=== PATIENT | female | born 1960 | race Caucasian/White ===

== ENCOUNTER → 2017-02-26 | Day surgery (SDC) | payer OTHER ==
[2017-01-26 15:01] VITALS: Ht 167.6 cm; Wt 106.2 kg
--- NOTE | 2017-01-26 15:21 | PAT Medication Instructions ---
Service Date Jan 26, 2017. Current Home Medication List Meloxicam (Mobic), 7.5 MG PO QAM Menthol (Topical Analgesic) (Biofreeze), 1 DOSE TOP PRN Phenylephrine Hcl (Nasal Decongestant), 1 SPRAY INTNAS PRN Zolpidem Tartrate (Ambien), 10 MG PO HS Medication Instructions For Your Scheduled Surgery - Hold the following medications 1 week prior to surgery as directed by surgeon: Meloxicam (Mobic), 7.5 MG PO QAM - Hold the following medications 24 hours prior to surgery: Menthol (Topical Analgesic) (Biofreeze), 1 DOSE TOP PRN - Take the following medications the morning of surgery: Phenylephrine Hcl (Nasal Decongestant), 1 SPRAY INTNAS PRN - Take the following medications as scheduled the night before surgery: Zolpidem Tartrate (Ambien), 10 MG PO HS *nothing to eat or drink after midnight* If you have any questions please call us at [phone] or [phone] or [phone]
[2017-01-26 15:53] LABS: BASO % 0.2 %; BASO ABS # 0.02 K/uL (0-0.2); EOS % 1.2 %; HEMATOCRIT 41.4 % (37-47); HEMOGLOBIN 13.5 g/dL (12.0-16.0); IG# 0.02 K/uL (0.00-0.02); LYMPH % 35.7 %; LYMPH ABS # 2.87 K/uL (1.2-3.4); MEAN CELL VOLUME 92.8 fL (80-100); MEAN CORPUSCULAR HEMOGLOBIN 30.3 pg (25-34); MEAN CORPUSCULAR HGB CONC 32.6 g/dl (32-36); MEAN PLATELET VOLUME 10.4 fL (7.4-10.4); MONO % 5.8 %; MONO ABS # 0.47 K/uL (0.11-0.59); NEUT % 56.9 %; NEUT ABS # 4.57 K/uL (1.4-6.5); PLATELET COUNT 222 K/uL (130-400); RED CELL DISTRIBUTION WIDTH CV 13.5 % (11.5-14.5); RED CELL DISTRIBUTION WIDTH SD 45.8 fL (36.4-46.3); WHITE BLOOD COUNT 8.05 K/uL (4.8-10.8)
[2017-01-26 16:13] LABS: CALCIUM 9.6 mg/dl (8.5-10.1); CREATININE 0.78 mg/dl (0.60-1.20); POTASSIUM 4.2 mmol/L (3.5-5.1)
[~2017-02-26] VITALS: Ht 167.6 cm; Wt 106.2 kg
[~2017-02-26] MED LIST: ATROPINE SULFATE 0.1 MG/ML 5ML SYR IV PRN; BUPIVACAINE/EPINEPHRINE 0.25% 1:200,000 30 ML VIAL ONE; CEFAZOLIN 2000MG IV PUSH 10 ML IV SCH; DEXAMETHASONE SOD INJ 4 MG/ML VIAL ONE; EpHEDrine SULFATE INJ 50 MG/ML AMP IV PRN; EpINEphrine INJ 1MG/ML AMP 1 MG/ML AMP ONE; FENTANYL CITRATE INJ 50 MCG/1 ML 2 ML VIAL IV PRN; FENTANYL CITRATE INJ 50 MCG/1 ML 2 ML VIAL ONE; KETO10TA PO; LACTATED RINGER'S 1000ML 1,000 ML IV SCH; LIDOCAINE 2% 20 MG/ML 5ML SYR IV ONE; MELO7.5T5 PO; MENT4GEL TOP; MIDAZOLAM HCL 1 MG/ML 2ML VIAL ONE; MIRT30TA2 PO; ONDANSETRON INJ 2 MG/ML 2 ML VIAL IV PRN; ONDANSETRON INJ 2 MG/ML 2 ML VIAL ONE; OXYC-57 PO; OXYCODONE/ACETAMINOPHEN 5-325 TAB PO PRN; PHEN1SOL3 INTNAS; PROPOFOL IV EMULSION 10 MG/ML 20 ML VIAL IV ONE; ROPIVACAINE 0.5% 5 MG/ML 30 ML VIAL ONE; SCOPOLAMINE 1.5 MG TDSY TD ONE; SODIUM CHLORIDE 0.9% 1000ML 1,000 ML IV SCH; ZOLP10TA PO
--- NOTE | 2017-02-26 09:39 | History & Physical Bridge - [place] ---
H&P Re-Evaluation Bridge Note: I have examined the patient, reviewed the History & Physical and in the interval since the performance of the History & Physical I have noted the following changes of clinical significance: No changes noted
--- NOTE | 2017-02-26 11:12 | [facility] Post Operative Brief Note ---
Immediate Operative Summary Operative Date Feb 26, 2017. Pre-Operative Diagnosis Left Shoulder Inflammation Of Rotator Cuff Tendon, AC Joint Arthritis Post-Operative Diagnosis Same Procedure(s) Performed Left Shoulder Arthroscopy, Acromioplasty, Distal Clavicle Resection Surgeon Dr. Gaviria [employer] Surgeon(s) Mina Lutz PA-C Estimated Blood Loss 5cc Findings as above Specimens None Complication(s) None Disposition Recovery Room / PACU
--- NOTE | 2017-02-26 11:25 | Discharge Instructions-SurgCtr ---
Discharge Instructions Date of Service Feb 26, 2017. Visit Reason for Visit: Inflammation Of Rotator Cuff Tendon Discharge Discharge Diagnosis / Problem: SAME ABOVE Discharge Goals Goal(s): Decrease discomfort, Improve function Medications Stopped Medications Name(s): Mague Last dose a week ago. Restart Stopped Medication(s): MAY RESTART WHEN FINISHED WITH TORADOL PLEASE TAKE TORADOL EVERY 8 HOURS WITH FOOD Activity Recommendations Activity Limitations: as noted below Lifting Limitations: gradually increase as tolerated Exercise/Sports Limitations: gradually increase as tolerated Driving or Machine Use: WHEN OUT OF THE SLING AND OFF OF PAIN MEDICATION Anesthesia . Post Anesthesia Instructions: If you have had General Anesthesia or IV Sedation: * Do not drive today. * Resume driving when surgeon permits. * Do not make important decisions or sign legal documents today. * Call surgeon for: 1. Temperature elevations greater than 101 degrees F. 2. Uncontrollable pain. 3. Excessive bleeding. 4. Persistent nausea and vomiting. 5. Medication intolerance (nausea, vomiting or rash). * For nausea and vomiting use only clear liquids such as: tea, soda, bouillon until nausea subsides, then gradually increase diet as tolerated. * If you have any concerns or questions, call your surgeon's office. If physician is unavailable and it is an emergency, call 911 or go to the nearest emergency room. . Instructions / Follow-Up Instructions / Follow-Up MEDICATIONS: * Resume previous medications unless instructed otherwise by your surgeon. * Always take pain medication on a full stomach or with food to avoid upset stomach. * Do not drink alcohol or drive while taking narcotics. * Ibuprofen or Tylenol may be taken if narcotic not needed. SPECIAL CARE INSTRUCTIONS: __ None _X_ Keep extremity elevated and iced x 48 hours; apply ice 20-30 minutes 8-10 times/day. May remove at night. _X_ Sling (WEAR FOR COMFORT ONLY) __24 hrs/day __ Remove at night __ Shoulder Immobilizer __ 24 hrs/day __ Remove at night _X_ Dressing __ Maintain until seen in office, may shower with plastic over site _X_ Remove dressings in 24-48 hours and then may shower _X_ Cover incisions with band-aids after showering __ Do not remove steri-strips Call physician if chills or temperature rises above 102 degrees or pain unrelieved by prescribed pain medications at . . Diet Recommendations Home Diet: no limitations Fluid Restriction: None Procedures Procedures Performed: Left Shoulder Arthroscopy, Acromioplasty, Distal Clavicle Resection Pending Studies Studies pending at discharge: no Work Instructions Return To Work: after follow-up Lifting Limitations: none Medical Emergencies . Who to Call and When: Medical Emergencies: If at any time you feel your situation is an emergency, please call 911 immediately. . Non-Emergent Contact Non-Emergency issues call your: Primary Care Provider Call Non-Emergent contact if: you have a fever, temperature is above 101.5 . . "Provider Documentation" section prepared by Wale Lutz. .
--- NOTE | 2017-02-26 11:31 | OPERATIVE REPORT ---
DATE OF OPERATION: 02/26/2017 PREOPERATIVE DIAGNOSES: Severe external impingement and acromioclavicular joint arthritis of the left shoulder. POSTOPERATIVE DIAGNOSES: Same. PROCEDURES: Left shoulder diagnostic arthroscopy with limited debridement, distal clavicle resection, and acromioplasty. SURGEON: Dr. Gonsalo Gaviria. MIRROR DEPARTMENT SUPERVISOR: Abel Lutz PA-C, whose assistance was necessary for positioning the arm and helping with instrumentation. ANESTHESIA: General with a left interscalene nerve block. COMPLICATIONS: None. CONDITION: Stable to PACU. INDICATIONS: Aimee is a pleasant 56-year-old female who presented to my office with chronic left shoulder pain. X-rays, MRI and clinical examination were diagnostic for severe external impingement and AC joint arthritis. After failing conservative treatment, she elected to undergo arthroscopy. DESCRIPTION OF PROCEDURE: On 02/26/2017, she arrived at [facility] for the above procedure. She was seen in the preoperative holding area and the operative extremity was identified and signed. She was given a preoperative antibiotic and a left interscalene nerve block. She was taken back to the operating room, laid on the table in supine position and put under general anesthesia. She was then put into the beach chair position. The left shoulder was prepped and draped in sterile fashion. Time-out was done and the patient's operative extremity was properly identified. A scope was introduced into the posterior portal. Diagnostic arthroscopy showed no cartilage damage to the humeral head or the glenoid. The supraspinatus, infraspinatus, teres minor, and subscapularis were all checked and intact. There was some fraying of the anterior labrum and a little fraying of the undersurface of the rotator cuff. An anterior portal was made. A shaver was used to do a limited debridement of the intraarticular structures. The biceps tendon was pulled into the joint and appeared to be intact. The scope was then put into the subacromial space. A lateral portal was made. A shaver was used to do a complete subacromial and subdeltoid bursectomy. An ablator was used to tease the coracoacromial ligament off the undersurface of the acromion and a 5-0 shanita was used to complete an acromioplasty of a large Bigliani type 3 acromion. A shaver was used to remove any excess debris. Attention was turned to the rotator cuff. The rotator cuff was examined extensively from the bursal side and there was no evidence of tears. Attention was then turned to the distal clavicle. Through an anterior portal, a shaver and ablator were used to skeletonize this clavicle. A 5-0 shanita was then used to resect the distal 5 mm from the clavicle. Complete resection was checked under direct visualization. A shaver was used to remove any excess debris and to a final diagnostic arthroscopy. No additional pathology was identified. Arthroscopic instruments were removed from the shoulder. Portal sites were closed with 3-0 nylon. She was then placed in a soft dressing and a regular arm sling. She was then extubated, transferred to a litter and taken to the postanesthesia care unit in stable condition. She tolerated the procedure well. I attest to the content of the Intraoperative Record and any orders documented therein. Any exception s are noted below.
[2017-02-26 12:13] VITALS: TEMP 36.5
--- NOTE | 2017-02-26 12:33 | Anesthesia Progress Nt - [facility] ---
Anesthesia Post Op Note Date & Time Feb 26, 2017 at 12:33 Vital Signs Pain Intensity: 0 Vital Signs Past 12 Hours Date Time Temp Pulse Resp B/P (MAP) Pulse Ox O2 Delivery O2 Flow Rate FiO2 02/26/17 12:13 36.5 67 20 141/74 (96) 96 Room Air 02/26/17 12:07 67 02/26/17 12:07 67 96 02/26/17 12:05 127/62 02/26/17 12:02 65 17 02/26/17 12:02 65 17 96 02/26/17 12:01 64 16 98 02/26/17 12:01 65 16 02/26/17 12:00 129/63 02/26/17 11:58 36.5 64 20 129/63 99 Room Air 02/26/17 11:56 64 12 02/26/17 11:56 64 12 98 02/26/17 11:55 104/45 02/26/17 11:51 65 16 108/45 99 02/26/17 11:51 65 16 02/26/17 11:46 64 22 97 02/26/17 11:46 65 22 02/26/17 11:45 116/56 02/26/17 11:41 69 15 02/26/17 11:41 67 15 118/57 96 02/26/17 11:36 61 13 100 02/26/17 11:36 61 13 02/26/17 11:35 117/66 02/26/17 11:31 62 16 02/26/17 11:31 63 16 100 02/26/17 11:30 121/60 02/26/17 11:26 68 21 02/26/17 11:26 68 21 119/64 100 02/26/17 11:23 123/60 02/26/17 11:23 36.1 67 16 123/60 98 Mask 6 67 02/26/17 10:31 68 02/26/17 10:31 69 18 100 02/26/17 10:30 130/71 02/26/17 10:27 68 02/26/17 10:27 68 15 100 02/26/17 10:26 70 02/26/17 10:26 71 11 99 02/26/17 10:25 125/73 02/26/17 10:21 64 02/26/17 10:21 64 9 99 02/26/17 10:20 69 02/26/17 10:20 67 10 131/63 99 02/26/17 10:15 65 02/26/17 10:15 64 12 123/69 100 02/26/17 10:11 142/79 02/26/17 10:10 70 02/26/17 10:10 67 15 100 02/26/17 10:09 133/81 02/26/17 10:08 69 02/26/17 10:08 69 0 100 02/26/17 08:37 36.4 69 16 148/83 (104) 96 Room Air Notes Mental Status: alert / awake / arousable, participated in evaluation Pt Amnestic to Procedure: Yes Nausea / Vomiting: adequately controlled Pain: adequately controlled Airway Patency, RR, SpO2: stable & adequate BP & HR: stable & adequate Hydration State: stable & adequate Anesthetic Complications: no major complications apparent
[2017-02-26 12:42] VITALS: BP 123/80; O2SAT 100
== END | disposition home or self-care (01) ==
LOC: X.SURG 08:13
PROVIDERS: ATTEND Orthopaedic Surgery
DX: M75.42 Impingement syndrome of left shoulder (principal); M19.012 Primary osteoarthritis, left shoulder; K21.9 Gastro-esophageal reflux disease without esophagitis; E66.9 Obesity, unspecified; Z68.38 Body mass index [BMI] 38.0-38.9, adult; Z79.899 Other long term (current) drug therapy